=== PATIENT | male | born 1980 | race Caucasian/White ===

== ENCOUNTER 2019-07-05 08:20 | Outpatient (CLI) | payer BC ==
[2019-07-05] MEDS ORDERED: TRAM50TA2 PO (08:58)
[2019-07-05] MEDS ORDERED: OMEG1CAP23 PO (08:58)
[2019-07-05] MEDS ORDERED: TIZA4TAB9 PO (08:58)
[2019-07-05] MEDS ORDERED: NAPR-685 PO (08:58)
[2019-07-05 09:40] LABS: BASOPHILS # (AUTO) 0.04 x10^3/uL (0-0.1); BASOPHILS % (AUTO) 1 % (0-1); EOSINOPHILS # (AUTO) 0.08 x10^3/uL (0-0.4); EOSINOPHILS % (AUTO) 2 % (1-7); HCT (SEDRATE) 47.7 % (39.2-51.8); LYMPHOCYTES # (AUTO) 2.11 x10^3/uL (1-3.4); LYMPHOCYTES % (AUTO) 37 % (22-44); MD NO; MEAN CORPUSCULAR HEMOGLOBIN 28.6 pg (27.5-34.5); MEAN CORPUSCULAR HGB CONC 32.9 g/dL (33.2-36.2); MEAN CORPUSCULAR VOLUME 86.9 fL (81-97); MEAN PLATELET VOLUME 8.6 fL (7.4-10.4); MONOCYTES # (AUTO) 0.35 x10^3/uL (0.2-0.8); MONOCYTES % (AUTO) 6 % (2-9); NEUTROPHILS % (AUTO) 55 % (42-75); PLATELET COUNT 231 x10^3/uL (130-400); RED BLOOD COUNT 5.54 x10^6/uL (4.38-5.82); RED CELL DISTRIBUTION WIDTH 12.9 % (9.4-14.8)
[2019-07-05 09:44] LABS: MICROSCOPIC NOT IND
[2019-07-05 09:46] LABS: INTERNATIONAL NORMALIZED RATIO 0.96 (0.93-1.1); PROTHROMBIN TIME 10.1 Seconds (9.6-11.5)
[2019-07-05 09:49] LABS: ALBUMIN 4.2 g/dL (3.4-5.0); ANION GAP 2 mmol/L (5-15); CALCIUM 8.7 mg/dL (8.5-10.1); CHLORIDE 110 mmol/L (98-107)
[2019-07-05 09:52] LABS: CULTURE INDICATED? NO
[2019-07-05 09:52] LABS: ALANINE AMINOTRANSFERASE 37 U/L (12-78); ALKALINE PHOSPHATASE 56 U/L (45-117); BILIRUBIN,TOTAL 0.8 mg/dL (0.2-1.0); CREATININE 1.03 mg/dL (0.7-1.3); TOTAL PROTEIN 6.7 g/dL (6.4-8.2)
== END 2019-07-05 23:59 | disposition home or self-care (01) ==
LOC: STAR 08:20
PROVIDERS: ATTEND Orthopaedic Surgery Orthopaedic Surgery of the Spine
DX: Z01.818 Encounter for other preprocedural examination (principal); M51.16 Intervertebral disc disorders with radiculopathy, lumbar region; M48.061 Spinal stenosis, lumbar region without neurogenic claudication
CPT/HCPCS: 36415; 71046; 80053; 80074; 81003; 85025; 85610; 85651; 85730; 87389; 93005

== ENCOUNTER 2019-07-19 05:42 | Inpatient (IN) | payer BC ==
[~2019-07-19] VITALS: Ht 172.7 cm; Wt 104.5 kg
[~2019-07-19 05:42] MED LIST: NAPR-685 PO; OMEG1CAP23 PO; TIZA4TAB9 PO; TRAM50TA2 PO
[2019-07-19] MEDS ORDERED: LACTATED RINGERS 1,000 ML IV SCH (06:21)
[2019-07-19] MEDS ORDERED: GABA600T7 PO (06:24)
[2019-07-19 06:26] VITALS: BP 137/91
[2019-07-19] MEDS ORDERED: BACITRACIN 50,000 UNIT ONE (06:44)
[2019-07-19] MEDS ORDERED: EPINEPHRINE 1 MG/ML, 1ML ONE (06:44)
[2019-07-19] MEDS ORDERED: BUPIVACAINE/PF 0.5% ONE (06:44)
[2019-07-19] MEDS ORDERED: THROMBIN 5,000 UNIT VIAL TP ONE (06:44)
[2019-07-19] MEDS ORDERED: VANCOMYCIN 1,000 MG ONE (06:52)
[2019-07-19] MEDS ORDERED: TOBRAMYCIN SULFATE 1.2 GM IMP ONE (06:52)
[2019-07-19] MEDS ORDERED: LIDOCAINE 1%-EPI 1:100K, 20ML ONE (06:52)
[2019-07-19] MEDS ORDERED: SCOPOLAMINE PATCH, 1.5MG PATCH.TD72 TD ONE ×2 (07:00→07:04)
[2019-07-19] MEDS ORDERED: ACETAMINOPHEN 500 MG TABLET PO ONE (07:00)
[2019-07-19] MEDS ORDERED: ACETAMINOPHEN 500 MG TABLET ONE (07:04)
[2019-07-19] MEDS ORDERED: CEFAZOLIN 1,000 MG ONE (07:05)
[2019-07-19] MEDS ORDERED: FENTANYL PF 250 MCG/5ML ONE ×2 (07:05→10:58)
[2019-07-19] MEDS ORDERED: ONDANSETRON 2MG/ML, 2ML ONE (07:05)
[2019-07-19] MEDS ORDERED: ROCURONIUM 10MG/ML,5ML ONE (07:05)
[2019-07-19] MEDS ORDERED: PROPOFOL 10 MG/ML, 20ML ONE ×2 (07:05→11:51)
[2019-07-19] MEDS ORDERED: MIDAZOLAM 1 MG/ML, 2ML ONE (07:05)
[2019-07-19] MEDS ORDERED: SUCCINYLCHOLINE 20 MG/ML, 10ML ONE (07:05)
[2019-07-19] MEDS ORDERED: GLYCOPYRROLATE 0.2MG/1ML, 5ML ONE (07:05)
[2019-07-19] MEDS ORDERED: NEOSTIGMINE 1 MG/ML, 10ML ONE (07:05)
[2019-07-19] MEDS ORDERED: DEXAMETHASONE 4 MG/ML, 1ML ONE (07:05)
[2019-07-19] MEDS ORDERED: PROPOFOL 50 ML ONE ×3 (07:07→10:25)
[2019-07-19] MEDS ORDERED: LIDOCAINE-MPF 2% ,5ML ONE (07:07)
[2019-07-19] MEDS ORDERED: SODIUM CHLORIDE 0.9% PF 10ML ONE (07:11)
[2019-07-19] MEDS ORDERED: EPHEDRINE 50 MG/ML, 1ML IVPush PRN (07:30)
[2019-07-19] MEDS ORDERED: LABETALOL 5MG/ML, 20ML IV PRN (07:30)
[2019-07-19] MEDS ORDERED: OXYcodone 5 MG/5 ML ORAL.SOL UDC PO PRN (07:30)
[2019-07-19] MEDS ORDERED: PROMETHAZINE 25 MG/ML, 1ML IV PRN (07:30)
[2019-07-19] MEDS ORDERED: hydrALAzine 20 MG/ML, 1ML IV PRN (07:30)
[2019-07-19] MEDS ORDERED: MEPERIDINE/PF 25MG/ML,1ML IVPush PRN (07:30)
[2019-07-19] MEDS ORDERED: ONDANSETRON 2MG/ML, 2ML IV PRN ×2 (07:30→14:30)
[2019-07-19] MEDS ORDERED: HYDROmorphone 2 MG/ML, 1ML IVPush PRN (07:30)
[2019-07-19] MEDS ORDERED: KETOROLAC 30 MG/1 ML ONE (07:57)
[2019-07-19] MEDS ORDERED: PHENYLEPHRINE 10 MG/ML ONE (07:57)
[2019-07-19] MEDS ORDERED: GENTAMICIN 80 MG/2 ML ONE ×2 (08:27)
[2019-07-19] MEDS ORDERED: FENTANYL PF 100 MCG/2ML ONE ×2 (09:57→12:56)
[2019-07-19] MEDS ORDERED: morphine SULFATE/PF 1 MG/ML, 10ML ONE (09:57)
[2019-07-19] MEDS ORDERED: morphine SULFATE/PF 0.5 MG/ML, 10ML ONE (09:58)
[2019-07-19] MEDS: FENTANYL PF 100 MCG/2ML IV PRN ×2 (12:59→13:27)
[2019-07-19] MEDS ORDERED: HYDROmorphone PCA 30 MG/30 ML IV PRN (13:00)
[2019-07-19] MEDS ORDERED: HYDROcodone/APAP 5/325 TABLET PO PRN (14:30)
[2019-07-19] MEDS ORDERED: DIAZEPAM 5 MG/ML, 2ML IV PRN (14:30)
[2019-07-19] MEDS: DIAZEPAM 5 MG TABLET PO PRN ×2 (14:58→20:51)
[2019-07-19] MEDS: GABAPENTIN 300 MG CAPSULE PO SCH ×2 (14:59→20:49)
[2019-07-19] MEDS: D5%-0.9% NACL+KCL 20MEQ 1,000 ML IV SCH (15:59)
[2019-07-19] MEDS: CEFAZOLIN PMX 1GM/50ML 50 ML IVPB SCH (16:04)
[2019-07-19 19:42] VITALS: BP 109/66
[2019-07-19] MEDS: ROPINIROLE 0.5MG TABLET PO SCH (22:53)
[2019-07-20] VITALS: BP 108/64
[2019-07-20] MEDS: CEFAZOLIN PMX 1GM/50ML 50 ML IVPB SCH (00:07)
[2019-07-20] MEDS: D5%-0.9% NACL+KCL 20MEQ 1,000 ML IV SCH ×2 (00:07→09:03)
[2019-07-20] MEDS: DIAZEPAM 5 MG TABLET PO PRN ×4 (03:08→21:25)
[2019-07-20] MEDS: OXYcodone/APAP 5/325MG TABLET PO PRN ×3 (03:53→20:58)
[2019-07-20 03:56] VITALS: BP 116/65
[2019-07-20 06:48] VITALS: BP 120/76
[2019-07-20] MEDS: SENNA/DOCUSATE TABLET PO SCH (07:57)
[2019-07-20] MEDS: CHOLECALCIFEROL 5,000u TAB PO SCH (07:58)
[2019-07-20] MEDS: CALCIUM/VITAMIN D3 250-125 TABLET PO SCH (07:58)
[2019-07-20] MEDS: GABAPENTIN 300 MG CAPSULE PO SCH ×3 (07:58→20:57)
[2019-07-20 14:50] VITALS: BP 133/68
[2019-07-20 19:17] VITALS: BP 130/77
[2019-07-20] MEDS: ROPINIROLE 0.5MG TABLET PO SCH (20:57)
[2019-07-21 00:45] VITALS: BP 110/82
[2019-07-21] MEDS: D5%-0.9% NACL+KCL 20MEQ 1,000 ML IV SCH ×4 (02:19→19:00)
[2019-07-21] MEDS: OXYcodone/APAP 5/325MG TABLET PO PRN ×5 (02:45→19:57)
[2019-07-21] MEDS: DIAZEPAM 5 MG TABLET PO PRN ×3 (03:32→21:29)
[2019-07-21] MEDS: SENNA/DOCUSATE TABLET PO SCH (08:15)
[2019-07-21] MEDS: CHOLECALCIFEROL 5,000u TAB PO SCH (08:15)
[2019-07-21] MEDS: GABAPENTIN 300 MG CAPSULE PO SCH ×3 (08:15→19:57)
[2019-07-21] MEDS: CALCIUM/VITAMIN D3 250-125 TABLET PO SCH (08:16)
[2019-07-21 09:15] VITALS: BP 110/66
[2019-07-21 14:00] VITALS: BP 116/69
[2019-07-21 18:30] VITALS: BP 119/61
[2019-07-21 18:34] VITALS: BP 123/72
[2019-07-21] MEDS ORDERED: ROPINIROLE 1MG TABLET ONE (19:53)
[2019-07-21] MEDS: ROPINIROLE 0.5MG TABLET PO SCH (19:58)
[2019-07-22] MEDS: OXYcodone/APAP 5/325MG TABLET PO PRN ×4 (00:09→13:20)
[2019-07-22 01:37] VITALS: BP 122/65
[2019-07-22] MEDS: D5%-0.9% NACL+KCL 20MEQ 1,000 ML IV SCH ×2 (03:00→10:20)
[2019-07-22] MEDS: DIAZEPAM 5 MG TABLET PO PRN ×2 (03:27→11:59)
[2019-07-22 07:02] VITALS: BP 133/75
[2019-07-22] MEDS: SENNA/DOCUSATE TABLET PO SCH (08:04)
[2019-07-22] MEDS: CALCIUM/VITAMIN D3 250-125 TABLET PO SCH (08:05)
[2019-07-22] MEDS: GABAPENTIN 300 MG CAPSULE PO SCH ×2 (08:05→16:06)
[2019-07-22] MEDS: CHOLECALCIFEROL 5,000u TAB PO SCH (08:05)
[2019-07-22 13:02] VITALS: BP 143/84
== END 2019-07-22 17:09 | disposition home or self-care (01) | DRG 460 ==
LOC: ORIP 05:42 → 4NE 14:00 → DCLOUNGE 07-22 16:55
PROVIDERS: ADMIT Orthopaedic Surgery Orthopaedic Surgery of the Spine; ATTEND Orthopaedic Surgery Orthopaedic Surgery of the Spine
PROC: 0SG3071 Fusion of Lumbosacral Joint with Autologous Tissue Substitute, Posterior Approach, Posterior Column, Open Approach (ICD-10-PCS; 2019-07-19)
PROC: 01NB0ZZ Release Lumbar Nerve, Open Approach (ICD-10-PCS; 2019-07-19)
PROC: 01NR0ZZ Release Sacral Nerve, Open Approach (ICD-10-PCS; 2019-07-19)
PROC: 07DR0ZZ Extraction of Iliac Bone Marrow, Open Approach (ICD-10-PCS; 2019-07-19)
PROC: 4A11X4G Monitoring of Peripheral Nervous Electrical Activity, Intraoperative, External Approach (ICD-10-PCS; 2019-07-19)
PROC: 0SG0071 Fusion of Lumbar Vertebral Joint with Autologous Tissue Substitute, Posterior Approach, Posterior Column, Open Approach (ICD-10-PCS; principal; 2019-07-19 07:30)
DX: M47.27 Other spondylosis with radiculopathy, lumbosacral region (principal); L71.9 Rosacea, unspecified; M53.2X6 Spinal instabilities, lumbar region
CPT/HCPCS: 36415; 72100; J3490; S0020; 86850; 86900; 86923; C1713; G0378; J0171; J0690; J1100; J1885; J2250; J2270; J2274; J2405; J2704; J2710; J3010; J3260; J3370; C1751; C1762; J0330; J1580; J2370; J3480; J7120